=== PATIENT | female | born 1950 | race Two or more races ===

== ENCOUNTER 2021-05-31 20:05 | Emergency (ER) | payer MEDICARE, OTHER ==
[~2021-05-31] VITALS: Ht 157.5 cm; Wt 74.8 kg
[~2021-05-31 20:05] MED LIST: AMIT25TA12 PO; FER325T PO; HYD25RS PR; LOSA-69 PO; OMEP20CA74 PO; Pantoprazole Sodium Sesquihydr PO; SIMV-13 PO
[2021-06-01] MEDS ORDERED: HYDROcodone-ACET 5/325MG TAB PO ONE (01:45)
[2021-06-01] MEDS ORDERED: KETOROLAC TROMETH 60MG/2ML VIAL IM ONE (01:45)
[2021-06-01 06:00] VITALS: BP 44/75
== END 2021-06-01 06:30 | disposition home or self-care (01) ==
LOC: EDUNIT# 20:05 → EDBD 20:05 → ER 20:05
DX: G43.909 Migraine, unspecified, not intractable, without status migrainosus (principal); I10 Essential (primary) hypertension; I25.10 Atherosclerotic heart disease of native coronary artery without angina pectoris
CPT/HCPCS: 70450; 71045; 96372; 99284; J1885

== ENCOUNTER 2022-03-21 10:12 | Inpatient (IN) | payer OTHER ==
[~2022-03-21] VITALS: Ht 154.9 cm; Wt 69.2 kg
[2022-03-21 11:26] LABS: Basophils # (auto) 0.1 10 ^3/uL (0-0.2); Basophils % (auto) 0.9 % (0.0-2.0); Eosinophils # (auto) 0.2 10 ^3/uL (0-0.8); Eosinophils % (auto) 2.2 % (0.0-7.0); Hematocrit 38.3 % (36.0-46.0); Hemoglobin 12.9 g/dL (12.2-16.2); Lymphocytes # (auto) 1.3 10 ^3/uL (0.4-5.4); Lymphocytes % (auto) 16.2 % (10.0-50.0); Mean Corpuscular Hemoglobin 30.1 pg (28.0-32.0); Mean Corpuscular Hgb Conc. 33.8 g/dL (32.0-36.0); Mean Corpuscular Volume 89.2 fL (80.0-100.0); Monocytes # (auto) 0.6 10 ^3/uL (0-1.3); Monocytes % (auto) 7.7 % (0.0-12.0); Red Cell Distribution Width 13.4 % (11.8-14.3); White Blood Cell 8.2 10^3/uL (4.4-10.8)
[2022-03-21 12:02] LABS: Potassium 4.3 mmol/L (3.5-5.1)
[2022-03-21 12:11] LABS: Albumin 3.7 g/dL (3.4-5.0); BUN/Creatinine Ratio 13.2; Bilirubin, Total 0.5 mg/dL (0.2-1.0); Calcium 9.2 mg/dL (8.5-10.1); Magnesium 2.3 mg/dL (1.6-2.6); Total Protein 7.5 g/dL (6.4-8.2)
[2022-03-21] MEDS ORDERED: NITROGLYCERIN 0.4 MG SL TAB SL ONE (14:15)
[2022-03-21] MEDS ORDERED: ASPirin 81 mg TAB PO ONE (14:15)
[2022-03-21] MEDS ORDERED: NITROGLYCERIN 0.4 MG SL TAB SL PRN (16:45)
[2022-03-21] MEDS: ONDANSETRON HCL 4 MG/2 ML VIAL IV PRN (20:07)
[2022-03-21] MEDS: MORPHINE SULFATE INJ 2 MG/ml SYRG IV PRN (20:07)
[2022-03-21] MEDS: SODIUM CHLOR 0.9% PF (SALINE LOCK) 10ML VIAL/SYR IV SCH (21:58)
[2022-03-21] MEDS: ATORVASTATIN 20 MG TAB PO SCH (21:58)
[2022-03-22 06:16] LABS: INR 0.97 (0.9-1.15); Partial Thromboplastin Time 26.7 sec (24.6-33.4)
[2022-03-22 06:18] LABS: BUN/Creatinine Ratio 20.8; Calcium 8.8 mg/dL (8.5-10.1); Cholesterol 228 mg/dL (< 200); Potassium 4.5 mmol/L (3.5-5.1); Triglycerides 137 mg/dL (< 150)
[2022-03-22] MEDS: SODIUM CHLOR 0.9% PF (SALINE LOCK) 10ML VIAL/SYR IV SCH ×3 (06:19→21:19)
[2022-03-22 06:21] LABS: HDL Cholesterol 67 mg/dL (40-59); LDL Cholesterol 133 mg/dL (< 100)
[2022-03-22 06:22] LABS: Basophils # (auto) 0 10 ^3/uL (0-0.2); Basophils % (auto) 0.7 % (0.0-2.0); Eosinophils # (auto) 0.2 10 ^3/uL (0-0.8); Eosinophils % (auto) 2.6 % (0.0-7.0); Hematocrit 36.3 % (36.0-46.0); Hemoglobin 12.1 g/dL (12.2-16.2); Lymphocytes # (auto) 1.9 10 ^3/uL (0.4-5.4); Lymphocytes % (auto) 30.3 % (10.0-50.0); Mean Corpuscular Hemoglobin 29.7 pg (28.0-32.0); Mean Corpuscular Hgb Conc. 33.4 g/dL (32.0-36.0); Monocytes # (auto) 0.6 10 ^3/uL (0-1.3); Neutrophils # (auto) 3.5 10 ^3/uL (1.6-8.6); Neutrophils % (auto) 56.4 % (37.0-80.0); Red Blood Cells 4.08 10^6/uL (4.0-5.20); Red Cell Distribution Width 13.8 % (11.8-14.3); White Blood Cell 6.2 10^3/uL (4.4-10.8)
[2022-03-22] MEDS: PANTOPRAZOLE 40 MG/10 ML VIAL INJ IV SCH (10:26)
[2022-03-22] MEDS: ASPirin 81 mg TAB PO SCH (10:26)
[2022-03-22] MEDS: ENOXAPARIN SOD 40 MG/0.4 ML SYRINGE SC SCH (10:27)
[2022-03-22 15:11] VITALS: BP 107/66
[2022-03-22 16:00] VITALS: BP 107/66
[2022-03-22] MEDS ORDERED: AMLO-496 PO (16:13)
[2022-03-22] MEDS ORDERED: PNEUMOCOCCAL VACC POLYS 25 MCG/0.5 ML VIAL IM ONE (16:45)
[2022-03-22] MEDS: ATORVASTATIN 20 MG TAB PO SCH (21:19)
[2022-03-22 22:00] VITALS: BP 110/55
[2022-03-23 04:40] VITALS: BP 112/60
[2022-03-23] MEDS: SODIUM CHLOR 0.9% PF (SALINE LOCK) 10ML VIAL/SYR IV SCH ×3 (06:07→21:23)
[2022-03-23 08:53] VITALS: BP 112/55
[2022-03-23] MEDS: PANTOPRAZOLE 40 MG/10 ML VIAL INJ IV SCH (09:09)
[2022-03-23] MEDS: ASPirin 81 mg TAB PO SCH (09:09)
[2022-03-23] MEDS: HYDROcodone-ACET 5/325MG TAB PO PRN (09:09)
[2022-03-23] MEDS: ENOXAPARIN SOD 40 MG/0.4 ML SYRINGE SC SCH (09:10)
[2022-03-23] MEDS ORDERED: FUROSEMIDE 20 MG/2 ML VIAL IV ONE (10:30)
[2022-03-23] MEDS: DOCUSATE SOD 100 MG CAP PO PRN ×2 (11:08→21:22)
[2022-03-23 13:00] VITALS: BP 124/60
[2022-03-23 16:36] VITALS: BP 114/47
[2022-03-23] MEDS ORDERED: FUROSEMIDE 20 MG/2 ML VIAL IV SCH (18:00)
[2022-03-23] MEDS: SACUBITRIL-VALSARTAN 24mg/26mg TAB PO SCH (21:22)
[2022-03-23] MEDS: METOPROLOL TARTRATE 25 MG TAB PO SCH (21:23)
[2022-03-23] MEDS: ATORVASTATIN 20 MG TAB PO SCH (21:23)
[2022-03-23 21:45] VITALS: BP 110/50
[2022-03-24] MEDS: HYDROcodone-ACET 5/325MG TAB PO PRN ×4 (04:31→23:53)
[2022-03-24 04:42] VITALS: BP 108/60
[2022-03-24] MEDS: SODIUM CHLOR 0.9% PF (SALINE LOCK) 10ML VIAL/SYR IV SCH ×3 (04:50→21:52)
[2022-03-24 08:24] VITALS: BP 115/54
[2022-03-24 08:41] LABS: Calcium 8.8 mg/dL (8.5-10.1)
[2022-03-24 08:43] LABS: BUN/Creatinine Ratio 16.3
[2022-03-24 09:00] VITALS: BP 115/54
[2022-03-24] MEDS: METOPROLOL TARTRATE 25 MG TAB PO SCH ×2 (10:00→21:52)
[2022-03-24] MEDS: ONDANSETRON HCL 4 MG/2 ML VIAL IV PRN ×2 (10:43→16:36)
[2022-03-24] MEDS: ENOXAPARIN SOD 40 MG/0.4 ML SYRINGE SC SCH (10:44)
[2022-03-24] MEDS: ASPirin 81 mg TAB PO SCH (10:45)
[2022-03-24] MEDS: SACUBITRIL-VALSARTAN 24mg/26mg TAB PO SCH ×2 (10:45→21:51)
[2022-03-24 12:57] VITALS: BP 131/63
[2022-03-24] MEDS: MORPHINE SULFATE INJ 2 MG/ml SYRG IV PRN (13:08)
[2022-03-24 17:00] VITALS: BP 109/50
[2022-03-24] MEDS: ATORVASTATIN 20 MG TAB PO SCH (21:51)
[2022-03-24 22:00] VITALS: BP 115/55
[2022-03-25 05:00] VITALS: BP 105/46
[2022-03-25] MEDS: SODIUM CHLOR 0.9% PF (SALINE LOCK) 10ML VIAL/SYR IV SCH ×2 (05:28→14:00)
[2022-03-25] MEDS ORDERED: ADENOSINE 58 MG in GIVE UN-DILUTED 0 ML IV STA (07:38)
[2022-03-25 09:16] VITALS: BP 128/69
[2022-03-25] MEDS: ASPirin 81 mg TAB PO SCH (11:11)
[2022-03-25] MEDS: SACUBITRIL-VALSARTAN 24mg/26mg TAB PO SCH (11:12)
[2022-03-25] MEDS: ENOXAPARIN SOD 40 MG/0.4 ML SYRINGE SC SCH (11:12)
[2022-03-25] MEDS: METOPROLOL TARTRATE 25 MG TAB PO SCH (11:12)
[2022-03-25 12:33] VITALS: BP 121/57
[2022-03-25] MEDS ORDERED: SACU1TAB PO (14:23)
[2022-03-25] MEDS ORDERED: MET25T PO (14:23)
[2022-03-25 16:00] VITALS: BP 112/59
[2022-03-25 17:00] VITALS: BP 115/61
== END 2022-03-25 18:00 | disposition home or self-care (01) | DRG 313 ==
LOC: EDBD 10:12 → ER 10:12 → TELE 16:37 → TELE-CENTR 03-22 14:52
PROVIDERS: ADMIT Nurse Practitioner Family; ATTEND Student in an Organized Health Care Education/Training Program
DX: R07.89 Other chest pain (principal); I31.39 Other pericardial effusion (noninflammatory); E78.5 Hyperlipidemia, unspecified; Z20.822 Contact with and (suspected) exposure to COVID-19; I10 Essential (primary) hypertension; I25.119 Atherosclerotic heart disease of native coronary artery with unspecified angina pectoris; R73.03 Prediabetes; Z79.82 Long term (current) use of aspirin; Z98.61 Coronary angioplasty status; Z86.73 Personal history of transient ischemic attack (TIA), and cerebral infarction without residual deficits; Z82.49 Family history of ischemic heart disease and other diseases of the circulatory system
CPT/HCPCS: 36415; 71045; 74177; 78452; 80048; 80053; 80061; 83036; 83735; 83880; 84443; 84484; 85025; 85610; 85652; 85730; 86141; 93005; 93017; 93306; 96374; 96375; C9113; G0378; J0153; J2405

== ENCOUNTER 2022-04-11 19:58 | Inpatient (IN) | payer OTHER ==
[~2022-04-11] VITALS: Ht 157.5 cm; Wt 80.0 kg
[~2022-04-11 19:58] MED LIST changes: -LOSA-69 PO; +MET25T PO; +SACU1TAB PO
[2022-04-11] MEDS ORDERED: NITROGLYCERIN 0.4 MG SL TAB SL ONE (21:15)
[2022-04-11] MEDS ORDERED: ASPirin 325 MG TAB PO ONE (21:15)
[2022-04-11 21:29] LABS: Basophils # (auto) 0.3 10 ^3/uL (0-0.2); Eosinophils # (auto) 0.3 10 ^3/uL (0-0.8); Eosinophils % (auto) 4.3 % (0.0-7.0); Hemoglobin 13.1 g/dL (12.2-16.2); Lymphocytes # (auto) 2.1 10 ^3/uL (0.4-5.4); Lymphocytes % (auto) 30.8 % (10.0-50.0); Mean Corpuscular Hemoglobin 30.1 pg (28.0-32.0); Mean Corpuscular Hgb Conc. 33.7 g/dL (32.0-36.0); Mean Corpuscular Volume 89.4 fL (80.0-100.0); Monocytes # (auto) 0.6 10 ^3/uL (0-1.3); Monocytes % (auto) 9.1 % (0.0-12.0); Neutrophils # (auto) 3.6 10 ^3/uL (1.6-8.6); Neutrophils % (auto) 51.8 % (37.0-80.0); Nucleated Red Blood Cells % 0.1 %; Red Blood Cells 4.36 10^6/uL (4.0-5.20); Red Cell Distribution Width 13.8 % (11.8-14.3)
[2022-04-11 21:47] LABS: Albumin 3.5 g/dL (3.4-5.0); Calcium 8.8 mg/dL (8.5-10.1)
[2022-04-11 21:50] LABS: BUN/Creatinine Ratio 19.5; Bilirubin, Total 0.5 mg/dL (0.2-1.0); Total Protein 6.9 g/dL (6.4-8.2)
[2022-04-11] MEDS ORDERED: DOCUSATE SOD 100 MG CAP PO PRN (23:00)
[2022-04-11] MEDS ORDERED: ACETAMINOPHEN 325 MG TAB PO PRN (23:00)
[2022-04-11] MEDS ORDERED: HYDROcodone-ACET 5/325MG TAB PO PRN (23:00)
[2022-04-11] MEDS ORDERED: hydrALAZINE HCL 20 MG/ML VL IV PRN (23:00)
[2022-04-11] MEDS ORDERED: NITROGLYCERIN 0.4 MG SL TAB SL PRN (23:00)
[2022-04-11] MEDS ORDERED: MORPHINE SULFATE INJ 2 MG/ml SYRG IV PRN (23:00)
[2022-04-11] MEDS ORDERED: ONDANSETRON HCL 4 MG/2 ML VIAL IV PRN (23:00)
[2022-04-12 05:28] LABS: Basophils # (auto) 0.1 10 ^3/uL (0-0.2); Basophils % (auto) 1.1 % (0.0-2.0); Eosinophils # (auto) 0.3 10 ^3/uL (0-0.8); Eosinophils % (auto) 4.6 % (0.0-7.0); Hematocrit 34.6 % (36.0-46.0); Lymphocytes % (auto) 39.4 % (10.0-50.0); Mean Corpuscular Hemoglobin 30.8 pg (28.0-32.0); Mean Corpuscular Hgb Conc. 34.7 g/dL (32.0-36.0); Mean Corpuscular Volume 88.8 fL (80.0-100.0); Monocytes # (auto) 0.8 10 ^3/uL (0-1.3); Monocytes % (auto) 9.9 % (0.0-12.0); Neutrophils # (auto) 3.4 10 ^3/uL (1.6-8.6); Red Cell Distribution Width 13.8 % (11.8-14.3); White Blood Cell 7.6 10^3/uL (4.4-10.8)
[2022-04-12 05:47] LABS: Potassium 4.3 mmol/L (3.5-5.1)
[2022-04-12 05:52] LABS: Albumin 3.2 g/dL (3.4-5.0); BUN/Creatinine Ratio 15.9; Calcium 8.9 mg/dL (8.5-10.1)
[2022-04-12 06:04] LABS: Bilirubin, Total 0.7 mg/dL (0.2-1.0); Total Protein 6.5 g/dL (6.4-8.2)
[2022-04-12] MEDS: SODIUM CHLOR 0.9% PF (SALINE LOCK) 10ML VIAL/SYR IV SCH ×2 (06:22→13:57)
[2022-04-12] MEDS ORDERED: ASPirin 81 mg TAB PO SCH (10:00)
[2022-04-12] MEDS ORDERED: FAMOTIDINE (10MG/ML) 2ML VL IV SCH (10:00)
[2022-04-12 15:20] VITALS: BP 126/52
[2022-04-12] MEDS ORDERED: ATORVASTATIN 20 MG TAB PO SCH (22:00)
== END 2022-04-12 15:29 | disposition home or self-care (01) | DRG 313 ==
LOC: EDBD 19:58 → ER 19:58 → TELE 22:55
PROVIDERS: ADMIT Nurse Practitioner Family; ATTEND Student in an Organized Health Care Education/Training Program
DX: R07.9 Chest pain, unspecified (principal); I31.39 Other pericardial effusion (noninflammatory); Z20.822 Contact with and (suspected) exposure to COVID-19; E78.5 Hyperlipidemia, unspecified; I10 Essential (primary) hypertension; I25.10 Atherosclerotic heart disease of native coronary artery without angina pectoris; R73.03 Prediabetes; Z90.49 Acquired absence of other specified parts of digestive tract; Z82.49 Family history of ischemic heart disease and other diseases of the circulatory system
CPT/HCPCS: 36415; 71045; 80053; 84484; 85025; 87426; 93005; 96361; 96374; G0378; J3490

== ENCOUNTER 2022-04-25 10:39 | Emergency (ER) | payer OTHER ==
[~2022-04-25] VITALS: Ht 147.3 cm; Wt 65.0 kg
[2022-04-25 10:43] VITALS: BP 140/80
[2022-04-25 11:25] LABS: Basophils # (auto) 0.1 10 ^3/uL (0-0.2); Basophils % (auto) 0.9 % (0.0-2.0); Eosinophils # (auto) 0.2 10 ^3/uL (0-0.8); Eosinophils % (auto) 2.3 % (0.0-7.0); Hematocrit 39.2 % (36.0-46.0); Lymphocytes # (auto) 2.1 10 ^3/uL (0.4-5.4); Lymphocytes % (auto) 28.9 % (10.0-50.0); Mean Corpuscular Hemoglobin 29.9 pg (28.0-32.0); Mean Corpuscular Hgb Conc. 33.2 g/dL (32.0-36.0); Monocytes # (auto) 0.5 10 ^3/uL (0-1.3); Monocytes % (auto) 7.6 % (0.0-12.0); Neutrophils # (auto) 4.3 10 ^3/uL (1.6-8.6); Neutrophils % (auto) 60.3 % (37.0-80.0); Red Blood Cells 4.35 10^6/uL (4.0-5.20); White Blood Cell 7.1 10^3/uL (4.4-10.8)
[2022-04-25 11:45] LABS: Albumin 3.6 g/dL (3.4-5.0); Calcium 9.2 mg/dL (8.5-10.1); Magnesium 2.4 mg/dL (1.6-2.6); Potassium 4.7 mmol/L (3.5-5.1)
[2022-04-25 11:48] LABS: BUN/Creatinine Ratio 15.1; Bilirubin, Total 0.8 mg/dL (0.2-1.0); Total Protein 7.1 g/dL (6.4-8.2)
== END 2022-04-25 17:02 | disposition home or self-care (01) ==
LOC: EDBD 10:39 → ER 10:39
DX: I10 Essential (primary) hypertension (principal); I25.10 Atherosclerotic heart disease of native coronary artery without angina pectoris; F32.9 Major depressive disorder, single episode, unspecified; Z86.73 Personal history of transient ischemic attack (TIA), and cerebral infarction without residual deficits; Z90.49 Acquired absence of other specified parts of digestive tract
CPT/HCPCS: 36415; 71045; 80053; 83735; 83880; 84484; 85025; 93005

== ENCOUNTER 2022-05-17 10:22 | Inpatient (IN) | payer OTHER ==
[~2022-05-17] VITALS: Ht 304.8 cm; Wt 65.4 kg
[2022-05-17 11:08] LABS: Basophils # (auto) 0 10 ^3/uL (0-0.2); Basophils % (auto) 0.6 % (0.0-2.0); Eosinophils # (auto) 0.1 10 ^3/uL (0-0.8); Eosinophils % (auto) 2.3 % (0.0-7.0); Hematocrit 37.7 % (36.0-46.0); Hemoglobin 12.4 g/dL (12.2-16.2); Lymphocytes # (auto) 1.6 10 ^3/uL (0.4-5.4); Lymphocytes % (auto) 26.6 % (10.0-50.0); Mean Corpuscular Hgb Conc. 32.9 g/dL (32.0-36.0); Mean Corpuscular Volume 91.2 fL (80.0-100.0); Monocytes # (auto) 0.5 10 ^3/uL (0-1.3); Monocytes % (auto) 7.6 % (0.0-12.0); Neutrophils # (auto) 3.8 10 ^3/uL (1.6-8.6); Neutrophils % (auto) 62.9 % (37.0-80.0); Red Blood Cells 4.14 10^6/uL (4.0-5.20); Red Cell Distribution Width 13.7 % (11.8-14.3)
[2022-05-17 11:23] LABS: Albumin 3.4 g/dL (3.4-5.0); BUN/Creatinine Ratio 14.6; Calcium 8.6 mg/dL (8.5-10.1); Magnesium 2.4 mg/dL (1.6-2.6); Potassium 3.5 mmol/L (3.5-5.1)
[2022-05-17 11:26] LABS: Total Protein 6.8 g/dL (6.4-8.2)
[2022-05-17] MEDS ORDERED: ACETAMINOPHEN 325 MG TAB PO PRN (14:15)
[2022-05-17] MEDS ORDERED: MORPHINE SULFATE INJ 2 MG/ml SYRG IV PRN (14:15)
[2022-05-17] MEDS ORDERED: NITROGLYCERIN 0.4 MG SL TAB SL PRN (14:15)
[2022-05-17] MEDS: SODIUM CHLORIDE 0.9% 1,000 ML IV SCH (14:46)
[2022-05-17 14:50] LABS: Cholesterol 169 mg/dL (< 200)
[2022-05-17 14:52] LABS: HDL Cholesterol 69 mg/dL (40-59); LDL Cholesterol 92 mg/dL (< 100); Triglycerides 104 mg/dL (< 150)
[2022-05-17] MEDS ORDERED: LORazepam 2MG/ML-1ML VIAL IV PRN (16:15)
[2022-05-17] MEDS: HYDROcodone-ACET 5/325MG TAB PO PRN (20:34)
[2022-05-17] MEDS ORDERED: KETOROLAC TROMETH 30 MG/ML 1ML VIAL IV ONE (22:00)
[2022-05-17] MEDS: ATORVASTATIN 20 MG TAB PO SCH (22:13)
[2022-05-18] VITALS (7 sets, daily range): BP systolic 95–131; BP diastolic 48–84
[2022-05-18 06:01] LABS: Basophils # (auto) 0.1 10 ^3/uL (0-0.2); Basophils % (auto) 0.7 % (0.0-2.0); Eosinophils # (auto) 0.1 10 ^3/uL (0-0.8); Eosinophils % (auto) 2.1 % (0.0-7.0); Hematocrit 37.9 % (36.0-46.0); Hemoglobin 12.4 g/dL (12.2-16.2); Lymphocytes # (auto) 2.7 10 ^3/uL (0.4-5.4); Lymphocytes % (auto) 38.9 % (10.0-50.0); Mean Corpuscular Hemoglobin 30.1 pg (28.0-32.0); Mean Corpuscular Hgb Conc. 32.8 g/dL (32.0-36.0); Mean Corpuscular Volume 91.8 fL (80.0-100.0); Monocytes # (auto) 0.7 10 ^3/uL (0-1.3); Monocytes % (auto) 9.6 % (0.0-12.0); Neutrophils # (auto) 3.4 10 ^3/uL (1.6-8.6); Neutrophils % (auto) 48.7 % (37.0-80.0); Nucleated Red Blood Cells % 0.1 %; Red Blood Cells 4.13 10^6/uL (4.0-5.20); Red Cell Distribution Width 14.1 % (11.8-14.3)
[2022-05-18 06:19] LABS: Potassium 3.9 mmol/L (3.5-5.1)
[2022-05-18 06:33] LABS: Albumin 3.2 g/dL (3.4-5.0); BUN/Creatinine Ratio 19.4; Bilirubin, Total 1.3 mg/dL (0.2-1.0); Calcium 8.9 mg/dL (8.5-10.1); Total Protein 6.7 g/dL (6.4-8.2)
[2022-05-18] MEDS: SODIUM CHLORIDE 0.9% 1,000 ML IV SCH (06:44)
[2022-05-18] MEDS: HYDROcodone-ACET 5/325MG TAB PO PRN (12:03)
[2022-05-18] MEDS: ASPirin 81 mg TAB PO SCH (13:58)
[2022-05-18] MEDS: ENOXAPARIN SOD 40 MG/0.4 ML SYRINGE SC SCH (13:59)
[2022-05-18] MEDS: ONDANSETRON HCL 4 MG/2 ML VIAL IV PRN (14:27)
[2022-05-18] MEDS: ATORVASTATIN 20 MG TAB PO SCH (22:22)
[2022-05-19 00:21] LABS: Urine Bacteria NONE SEEN /hpf (None Seen); Urine Blood 1+ /uL (Negative); Urine Specific Gravity 1.008 (1.001-1.035); Urine WBC 11 /hpf (0 - 5)
[2022-05-19] MEDS: SODIUM CHLORIDE 0.9% 1,000 ML IV SCH ×2 (02:42→16:15)
[2022-05-19 05:00] VITALS: BP 136/70
[2022-05-19] MEDS: ONDANSETRON HCL 4 MG/2 ML VIAL IV PRN (08:20)
[2022-05-19 08:37] VITALS: BP 149/71
[2022-05-19] MEDS ORDERED: SACU1TAB PO (09:43)
[2022-05-19] MEDS ORDERED: MET25T PO (09:43)
[2022-05-19] MEDS ORDERED: ONDA-144 PO (09:43)
[2022-05-19] MEDS: ENOXAPARIN SOD 40 MG/0.4 ML SYRINGE SC SCH (09:54)
[2022-05-19] MEDS: ASPirin 81 mg TAB PO SCH (09:54)
[2022-05-19 11:38] VITALS: BP 149/71
[2022-05-19 12:57] VITALS: BP 126/63
== END 2022-05-19 16:00 | disposition home or self-care (01) | DRG 149 ==
LOC: EDBD 10:22 → ER 10:27 → TELE 14:21 → TELE-CENTR 23:22
PROVIDERS: ADMIT Nurse Practitioner Family; ATTEND Nurse Practitioner Family
DX: R42 Dizziness and giddiness (principal); I42.8 Other cardiomyopathies; E78.5 Hyperlipidemia, unspecified; I10 Essential (primary) hypertension; R00.2 Palpitations; I25.10 Atherosclerotic heart disease of native coronary artery without angina pectoris; Z79.899 Other long term (current) drug therapy; Z86.73 Personal history of transient ischemic attack (TIA), and cerebral infarction without residual deficits; Z82.49 Family history of ischemic heart disease and other diseases of the circulatory system; Z90.49 Acquired absence of other specified parts of digestive tract; R73.9 Hyperglycemia, unspecified
CPT/HCPCS: 36415; 70450; 70551; 71045; 80053; 80061; 81001; 83735; 83880; 84443; 84484; 85025; 85379; 87426; 93005; 93306; 93886; 96374; 97116; 97163; 97530; G0378; J1885; J2405